=== PATIENT | female | born 1945 | race Caucasian/White ===

== ENCOUNTER 2024-11-11 15:02 | Outpatient (AMB) | payer MEDICARE, MEDICAID, SELFPAY ==
--- NOTE | 2024-11-11 15:12 | MHC.OFFVIS ---
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 Her son and daughter were here with her. Apparently he started having right hand shaking about a year ago or more. She was prescribed propranolol, which apparently was not helping. She was also having difficulty ambulating, dressing and undressing, and getting in and out of car. She was requiring help from family. There was no hallucinations or delusions or significant memory difficulties. There was no change in personality. [facility] Medical History (Updated 11/11/24 @ 15:18 by Fatou Hernandez MD) Vitamin D deficiency Osteopenia HLD (hyperlipidemia) Hypertension GERD (gastroesophageal reflux disease) Trigger finger Headache Benign essential tremor Surgical History (Updated 11/10/24 @ 09:14 by Adrianna Umanzor CMA) H/O: hysterectomy History of cholecystectomy Review of Systems Const Details: Constitutional:?No fever, chills, fatigue, weight loss, or night sweats. HEENT:?No headache, vision changes, hearing loss, nasal congestion, sore throat. Cardiovascular:?No chest pain, palpitations, orthopnea, PND, or leg swelling. Respiratory:?No cough, shortness of breath, wheezing, or hemoptysis. Gastrointestinal:?No nausea, vomiting, abdominal pain, diarrhea, or constipation. Genitourinary:?No dysuria, frequency, incontinence, or hematuria. Musculoskeletal:?No joint pain, stiffness, weakness, or muscle aches. Psychiatric:?No anxiety, depression, mood swings, sleep disturbance, or hallucinations. Endocrine:?No heat/cold intolerance, polydipsia, polyuria, or hair/skin changes. Hematologic/Lymphatic:?No easy bruising, bleeding, or lymphadenopathy. Integumentary (Skin):?No rash, lesions, itching, or color changes. Allergic/Immunologic:?No seasonal allergies, hives, or recurrent infections. Physical Exam Neuro Other: Mental Status: Alert and oriented to person, place, and time. Normal attention. Normal spontaneous speech, fluency, and comprehension. No obvious issues with mood and memory. Affect is appropriate. Cranial Nerves: CN II: Visual aguayo full to confrontation, visual acuity intact. CN III, IV, : Pupils equal, round, reactive to light and accommodation. Extraocular movements are normal. CN V: Facial sensation is normal. CN VII: Facial movements symmetrical. CN VIII: Hearing intact to bedside conversation is normal. CN IX, X: Palate elevates symmetrically. CN XI: Shoulder shrug and head turn symmetrical. CN XII: Tongue midline without atrophy or fasciculations. Motor: Bulk and tone normal in all extremities. No significant muscle weakness in arms and legs. No drift. Reflexes: Deep tendon reflexes 2+ and symmetric. Plantar response down-going bilaterally. Coordination: Etqwuy-cx-[id number] and ceqd-if-muap testing normal. No dysmetria. Gait and Station: No obvious gait abnormality. No ataxia or instability. Facial expression blinking or diminished. There was moderate generalized bradykinesia. Eijy-zl-buzckwsf right hand resting tremor. Moderate upper extremity cogwheeling rigidity. She is walking in his slow paced short-stepped gait with decreased arm swing with slightly stooped posture. Speech: Normal; no dysarthria or tremor. Assessment & Plan Assessment & Plan (1) Parkinson disease: Code(s): G20.A1 - Parkinson's disease without dyskinesia, without mention of fluctuations Category: Medical Qualifiers: Dyskinesia presence: without dyskinesia Fluctuating manifestations: with fluctuating manifestations Qualified Code(s): G20.A2 - Parkinson's disease without dyskinesia, with fluctuations Plan Impression recommendations: 79 years old woman with [id number] Parkinson's disease. She and her family was educated about this condition. At this time my recommendation was to try carbidopa levodopa 3 times a day and continue physical activity such as regular walking. I would see her back in few weeks time for further adjustment of medicines. Reference was provided for further education in this subject. Medications: New carbidopa-levodopa 25-100 mg (Sinemet) 1 tab PO TID 270 tabs 1RF Coding Level of Care Code New Pt Level 4 (56421) Diagnoses Parkinson's disease without dyskinesia, with fluctuating manifestations G20.A2 Dyskinesia presence: without dyskinesia Fluctuating manifestations: with fluctuating manifestations
--- OUTSIDE RECORDS SUMMARY | 2024-11-11 16:27 | XMS_ITS | Clinical Summary ---
Author Organization [address] Address [address] [place] [address] SYDNEY Bryant [phone] Phone Care Team Providers Care Line And Frame Poler Name Role Phone Sheryl Mitchell MD Primary Care Provider [phone] Allergies Active Allergy Reactions Criticality Noted Date Comments Other 05/31/2015 Seasonal Watery eye's , runny nose Oxycodone 02/09/2016 Vomiting, upset stomach, nausea Medications amLODIPine (NORVASC) 5 mg tablet Take 1 tablet (5 mg total) by mouth 1 (one) time each day. 3 Active meloxicam (Mobic) 15 mg tablet Take 0.5 tablets (7.5 mg total) by mouth. 4 Active klwbbcbq-ywk-rc on-FA-vit K-lut 4 mg iron-200 mcg-25 mcg tablet Take by mouth. Activ e lactobacillius acidophilus-spo rogenes per tablet Take 1 Capsule by mouth every morning (before breakfast). Probiotic Product (Probiotic & Acidophilus Ex St) Cap 4 Active pravastatin (PRAVACHOL) 40 mg tablet TAKE 1 TABLET BY MOUTH DAILY 90 tablet 1 5 Active LORazepam (ATIVAN) 1 mg tablet Take 1 tablet (1 mg total) by mouth every 6 (six) hours if needed for anxiety. Max Daily Amount: 4 mg 6 tablet 5 Active propranoloL (INDERAL) 10 mg tablet TAKE 1 TABLET(10 MG) BY MOUTH DAILY 90 tablet 1 5 Active cholecalciferol (VITAMIN D-3) 50 mcg (2,000 unit) tablet TAKE 1 TABLET BY MOUTH DAILY 90 tablet 1 5 Active lisinopril-hydr oCHLOROthiazide (PRINZIDE,ZESTO RETIC) 20-25 mg per tablet TAKE 1 TABLET BY MOUTH DAILY 90 tablet 5 Active fluticasone propionate (FLONASE) 50 mcg/actuation nasal spray Administer 1 spray into each nostril 2 (two) times a day. SHAKE LIQUID 16 mL 3 5 Active simethicone (MYLICON,GAS-X) 180 mg capsule Take 1 capsule (180 mg total) by mouth 1 (one) time each day if needed for flatulence. 20 each 5 Active Active Problems Problem Noted Date Diagnosed Date Synovial cyst of lumbar facet joint 12/23/2021 Overview (01/22/2024): Last Assessment & Plan: Patient is 13 days s/p right L5-S1 decompression with resection of synovial cyst. She is very happy with her postop results, states she no longer has the severe leg pain, she is walking better. She notes a slight ache in the right posterior thigh, but mild. She has been using Tylenol through the day as needed. She had nausea vomiting from the narcotics, stopped that a couple days after surgery. She been ambulating and staying active. She denies any wound drainage, sweats chills, fevers, bowel bladder issues. She is eating well. Ms. Rojas is doing well postop and can follow-up as needed, with time she should note continued improvements, but I asked her to call with any concerns or questions. All postop questions answered. Essential tremor 05/25/2021 Overview (01/22/2024): [facility] neurology Assessment & Plan (05/05/2024 3:54 PM EDT): Continue propranolol. Stable. Dilated cbd, acquired 09/12/2018 Assessment & Plan (05/05/2024 3:54 PM EDT): Asymptomatic. Followed up with gastroenterology. Will monitor LFTs. If worsens, will obtain an MRI of the abdomen. Orders: Hepatic function panel; Future Headache syndrome 04/21/2015 Trigger finger 04/21/2015 GERD (gastroesophageal reflux disease) 6 HTN (hypertension) 04/20/2015 Assessment & Plan (09/19/2024 2:53 PM EDT): Blood pressure is okay. She will follow sodium diet. Will monitor electrolytes. Continue current regimen of lisinopril-hydrochlorothiazide and propranolol. Orders: Basic metabolic panel; Future Assessment & Plan (05/05/2024 3:54 PM EDT): Stable. She will follow low-sodium diet. Continue current regimen of amlodipine, lisinopril-hydrochlorothiazide and propranolol. Hyperlipidemia 04/20/2015 Assessment & Plan (09/19/2024 2:53 PM EDT): Follow low-cholesterol diet. Continue pravastatin. Assessment & Plan (05/05/2024 3:54 PM EDT): Low-cholesterol diet discussed. Continue pravastatin. Osteopenia 04/20/2015 Tubular adenoma of colon 04/20/2015 Overview (01/22/2024): 10/2015: Moderate diverticulosis and grade 1 hemorrhoids, otherwise normal. Repeat in 5 years (Dr Bustillo) 2012 repeat 5 yrs Vitamin D deficiency 04/20/2015 Assessment & Plan (09/19/2024 2:53 PM EDT): Will monitor vitamin D levels. Orders: Vitamin D 25 hydroxy; Future Resolved Problems Problem Noted Date Diagnosed Date Resolved Date Renal cyst 04/21/2015 05/05/2024 Encounters Date Type Department Care Team Description 09/19/2024 2:15 PM EDT Office Visit Internal Medicine - [facility] [address] [place] [address] Stanislaw Mason MD Tremor (Primary Dx); Acquired hallux valgus of right foot; Hypertension, unspecified type; Hyperlipidemia, unspecified hyperlipidemia type; Vitamin D deficiency; Encounter for screening mammogram for malignant neoplasm of breast; Menopause from Last 3 Months Immunizations Immunization Administration Dates Next Due Influenza trivalent, 0.5mL (Fluad) 65yo and olde r 11/22/2021,01/10/2021 Pfizer SARS-CoV-2 COVID-19, mRNA, LNP-S, preservative free 01/17/2021 Pneumococcal polysaccharide 23 valent (Pneumovax 23) 2yo and older 03/23/2017 Td Tetanus diptheria (Tdvax) 7yo and older 01/24 Surgical History Surgery Date Site/Laterality Comments COLONOSCOPY 2012 PROCEDURE: HISTORICAL COLONOSCOPY; COMMENT: 5 yr repeat UPPER GASTROINTESTINAL ENDOSCOPY 2012 PROCEDURE: UPPER GI ENDOSCOPY/EXAM CHOLECYSTECTOMY PROCEDURE: HISTORICAL CHOLECYSTECTOMY HYSTERECTOMY PROCEDURE: HISTORICAL HYSTERECTOMY; COMMENT: BSO Medical History Medical History Date Comments HTN (hypertension) 04/20/2015 DX:HTN (hyper tension) Hyperlipidemia 04/20/2015 DX:Hyperlipidemi a GERD (gastroesophageal reflux disease) 04/20/2015 DX:GERD (gastroesophageal reflux disease) Tubular adenoma of colon 04/20/2015 DX:Tubu lar adenoma of colon Vitamin D deficiency 04/20/2015 DX:Vitamin D deficiency Osteopenia 04/20/2015 DX:Osteopenia Hepatic cyst 04/20/2015 DX:Hepatic cyst Headache syndrome 04/21/2015 DX:Headache sy ndrome 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 DX:Histor y of myocarditis Trigger finger 04/21/2015 DX:Trigger finge r Renal cyst 04/21/2015 DX:Renal cyst Essential tremor 05/25/2021 DX:Essential tr emor; COMMENT: [facility] neurology Family History Medical History Relation Name Comments Other: CKD Brother 1 Prostate cancer Brother 1 Asthma Brother 2 Thyroid disease Daughter Stroke Father Stroke Maternal Grandfather Heart failure Maternal Grandmother Asthma Mother Cataracts Mother Coronary artery disease Mother Emphysema Mother Hypertension Mother Other: Other Mother Hypertension Mother's side 1 entire famil y Asthma Mother's side 2 Cataracts Sister Hypertension Sister Mental illness Sister Thyroid disease Sister Blindness Neg Hx Glaucoma, macul ar degeneration, strabismus Relation Name Status Comments Brother 1 Brother 2 Daughter Father Maternal Grandfather Maternal Grandmother Mother Mother's side 1 Mother's side 2 Other Other females in fami ly have little to no pigmentation of skin/ also breast calcifications Sister Social History Tobacco Use Types Packs/Day Years Used Date Smoking Tobacco: Never Smokeless Tobacco: Never Tobacco Cessation:Counseling Given: Not Answered Alcohol Use Standard Drinks/Week Comments No 0 (1 standard drink = 0.6 oz pur e alcohol) Comments No Sex and Gender Information Value Date Recorded Sex Assigned at Not on file Legal Sex Female 6:16 AM EST Gender Identity Not on file Sexual Orientation Not on file Obstetrics History Last Filed Vital Signs Vital Sign Reading Time Taken Comments Blood Pressure 130/74 09/19/2024 2:26 PM EDT Pulse 85 09/19/2024 2:26 PM EDT Temperature - - Respiratory Rate - - Oxygen Saturation - - Inhaled Oxygen Concentration - - Weight 71.2 kg (156 lb 14.4 oz) 09/19/2024 2:26 PM EDT Height 157.5 cm (5' 2 ) 09/19/2024 2:26 PM EDT Body Mass Index 28.7 09/19/2024 2:26 PM EDT Plan of Treatment Upcoming Encounters Date Type Department Care Team (Late st Contact Info) Description 11/14/2024 1:00 PM EDT [facility]ointment [facility] [address] [phone] 11/14/2024 2:00 PM EDT Appointment [facility] Bone Density [address] [place] [address] 02/10/2025 3:00 PM EST [facility] [address] [place] [address] Sheryl Mitchell MD [address] [place] [phone] Health Maintenance Due Date Last Done Comments Zoster Vaccines (1 of 2) 1995 Pneumococcal Vaccine: 50+ Years (2 of 2 - PCV) 03/23/2018 03/23/2017 RSV Immunization Adult Patients (1 - 1-dose 75+ series) 2020 Social Influencers of Health Screening 01/21/2022 Depression Screening 02/13/2024 11/05/2023 COVID-19 Vaccine ( season) 2024 01/17/2021, 06/07/2020, 05/15/2020 Influenza Vaccine (#1) 2024 , 01/10/2021, 10/25/2019 Falls Risk Assessment 11/04/2024 11/05/2023 Medicare Annual Wellness Visit 11/04/2024 11/05/2023 Hypertension/CHF/CAD Annual BMP Blood Test 09/22/2025 09/22/2024, 04/16/2024, 07/20/2023, Additional history exists Colorectal Cancer Screening: Colonoscopy 01/14/2026 01/12/2021 DTaP,Tdap,and Td Vaccines (2 - Td or Tdap) 01/24/2026 01/25/2016 Cholesterol Screening (Lipid Panel) 11/07/2029 11/07/2024, 09/22/2024, 04/16/2024, Additional history exists Osteoporosis Screening (Bone Density Screening) 03/16/2032 03/16/2022, 04/24/2019, 10/02/2016 Hepatitis C Screening Completed 04/16/2018 HIB Vaccines Aged Out No longer eligi ble based on patient's age to complete this topic HPV Vaccines Aged Out No longer eligi ble based on patient's age to complete this topic Hepatitis A Vaccines Aged Out No long er eligible based on patient's age to complete this topic Hepatitis B Vaccines Aged Out No long er eligible based on patient's age to complete this topic IPV Vaccines Aged Out No longer eligi ble based on patient's age to complete this topic MMR Vaccines Aged Out No longer eligi ble based on patient's age to complete this topic Meningococcal ACWY Vaccine Aged Out N o longer eligible based on patient's age to complete this topic Meningococcal B Vaccine Aged Out No l onger eligible based on patient's age to complete this topic RSV Immunization Patients Under 20 months Aged Out No longer eligible based on patient's age to complete this topic Varicella Vaccines Aged Out No longer eligible based on patient's age to complete this topic Procedures Procedure Name Priority Date/Time Associated Diagnosis Comments LIPID PANEL WITH REFLEX TO DIRECT LDL Routine 11/07/2024 10:36 AM EDT Hyperlipidemia, unspecified hyperlipidemia type CREATINE KINASE Routine 10/10/2024 11:33 AM EDT Elevated CPK HEPATIC FUNCTION PANEL Routine 09/22/2024 12:52 PM EDT Dilated cbd, acquired CREATINE KINASE Routine 09/22/2024 12:52 PM EDT Muscle cramps MAGNESIUM Routine 09/22/2024 12:52 PM EDT Muscle cramps THYROID STIMULATING HORMONE WITH REFLEX TO FREE T4 AND FREE T3 Routine 09/22/2024 12:52 PM EDT Muscle cramps BASIC METABOLIC PANEL Routine 09/22/2024 12:52 PM EDT Hypertension, unspecified type VITAMIN D 25 HYDROXY Routine 09/22/2024 12:52 PM EDT Vitamin D deficiency LIPID PANEL WITH REFLEX TO DIRECT LDL Routine 09/22/2024 12:52 PM EDT Secondary hypertension Hyperlipidemia, unspecified hyperlipidemia type DEPRESSION SCREENING Routine 11/05/2023 FALLS RISK ASSESSMENT Routine 11/05/2023 DXA BONE DENSITY STUDY 1+ SITS AXIAL SKEL Routine 03/16/2022 1:35 PM EST Encounter for screening for osteoporosis HM COLONOSCOPY Routine 01/12/2021 HEPATITIS C SCREENING Routine 04/16/2018 from Last 3 Months or Most Recently Relevant to Health Maintenance Results * Lipid panel with reflex to direct LDL (11/07/2024 10:36 AM EDT) Only the most recent of2 resultswithin the time period is included. [facility] Cholesterol 197 0 - 200 mg/dL LAB CHEMISTRY METHOD 11/07/2024 5:59 PM EDT [facility] Triglycerides 84 0 - 150 mg/dL LAB CHEMISTRY METHOD 11/07/2024 5:59 PM EDT [facility] HDL 94 >=40 mg/dL LAB CHEMISTRY METHOD 11/07/2024 5:59 PM EDT [facility] LDL Calculated 86 0 - 100 mg/dL LAB CHEMISTRY METHOD 11/07/2024 5:59 PM EDT [facility] Comment:Estimated LDL Calcul ated using equation: Total cholesterol - HDL cholesterol - (Triglycerides/5) VLDL Cholesterol Farhan 16.8 mg/dL LAB CHEMISTRY METHOD 11/07/2024 5:59 PM EDT [facility] Non HDL Chol. (LDL+VLDL) 103 <145 mg/dL LAB CHEMISTRY METHOD 11/07/2024 5:59 PM EDT [facility] Chol/HDL Ratio 2.1 0.0 - 4.4 LAB CHEMISTRY METHOD 11/07/2024 5:59 PM EDT [facility] Blood Venous blood specimen / Unknown Venipuncture / Unknown 11/07/2024 10:36 AM EDT 11/07/2024 10:36 AM EDT Stanislaw Mason MD LAB BLOOD ORDERABLES Jennie l Result Performing Organization Address City/[facility]/ZIP Co de Phone Number [facility] [address] [place] [address], [place] [phone] * (ABNORMAL) Creatine kinase (10/10/2024 11:33 AM EDT) Only the most recent of2 resultswithin the time period is included. Total CK 483(H) 22 - 269 unit/L LAB CHEMISTRY METHOD 10/10/2024 4:06 PM EDT [facility] Blood Venous blood specimen / Unknown Venipuncture / Unknown 10/10/2024 11:33 AM EDT 10/10/2024 11:33 AM EDT Stanislaw Mason MD LAB BLOOD ORDERABLES Jennie l Result [facility] [address] [place] [address], [place] [phone] * Thyroid stimulating hormone with reflex to free t4 and free t3 (09/22/2024 12:52 PM EDT) TSH 2.68 0.40 - 4.00 mcIU/mL LAB CHEMISTRY METHOD 09/22/2024 8:22 PM EDT [facility] Blood Venous blood specimen / Unknown Venipuncture / Unknown 09/22/2024 12:52 PM EDT 09/22/2024 12:52 PM EDT Stanislaw Mason MD LAB BLOOD ORDERABLES Jennie l Result Performing Organization Address [facility]/ZIP Co de Phone Number [facility] [address] [place] [address], * Vitamin D 25 hydroxy (09/22/2024 12:52 PM EDT) Pathologist [facility] Vit D, 25-Hydroxy 53.8 30.0 - 80.0 ng/mL LAB CHEMISTRY METHOD 09/22/2024 8:21 PM EDT [facility] Blood Venous blood specimen / Unknown Venipuncture / Unknown 09/22/2024 12:52 PM EDT 09/22/2024 12:52 PM EDT Stanislaw Mason MD LAB BLOOD ORDERABLES Jennie l Result [facility] [address] [place] [address], [place] [phone] * Magnesium (09/22/2024 12:52 PM EDT) Pathologist [facility] Magnesium 2.2 1.9 - 2.6 mg/dL LAB CHEMISTRY METHOD 09/22/2024 7:40 PM EDT [facility] Blood Venous blood specimen / Unknown Venipuncture / Unknown 09/22/2024 12:52 PM EDT 09/22/2024 12:52 PM EDT us Stanislaw Mason MD LAB BLOOD ORDERABLES Jennie aftab Result [facility] [address] [place] [address], [place] [phone] * Hepatic function panel (09/22/2024 12:52 PM EDT) Pathologist [facility] Total Protein 7.2 6.0 - 8.0 g/dL LAB CHEMISTRY METHOD 09/22/2024 7:49 PM EDT [facility] Albumin 3.9 3.2 - 5.0 g/dL LAB CHEMISTRY METHOD 09/22/2024 7:49 PM EDT [facility] Total Bilirubin 1.1 0.0 - 1.4 mg/dL LAB CHEMISTRY METHOD 09/22/2024 7:49 PM EDT [facility] Bilirubin, Direct 0.2 0.0 - 0.3 mg/dL LAB CHEMISTRY METHOD 09/22/2024 7:49 PM EDT [facility] Bilirubin, Indirect 0.9 0.0 - 1.1 mg/dL LAB CHEMISTRY METHOD 09/22/2024 7:49 PM EDT [facility] ALT (SGPT) 34 10 - 60 unit/L LAB CHEMISTRY METHOD 09/22/2024 7:49 PM EDT [facility] AST (SGOT) 25 10 - 42 unit/L LAB CHEMISTRY METHOD 09/22/2024 7:49 PM EDT [facility] Alkaline Phosphatase 60 42 - 121 unit/L LAB CHEMISTRY METHOD 09/22/2024 7:49 PM EDT [facility] Blood Venous blood specimen / Unknown Venipuncture / Unknown 09/22/2024 12:52 PM EDT 09/22/2024 12:52 PM EDT us Stanislaw Mason MD LAB BLOOD ORDERABLES Jennie l Result [facility] [address] [place] [address], * Basic metabolic panel (09/22/2024 12:52 PM EDT) Sodium 140 133 - 145 mmol/L LAB CHEMISTRY METHOD 09/22/2024 7:40 PM EDT [facility] Potassium 4.1 3.5 - 5.5 mmol/L LAB CHEMISTRY METHOD 09/22/2024 7:40 PM [facility] Chloride 102 96 - 110 mmol/L LAB CHEMISTRY METHOD 09/22/2024 7:40 PM [facility] CO2 30 21 - 32 mmol/L LAB CHEMISTRY METHOD 09/22/2024 7:40 PM [facility] Anion Gap 8 3 - 11 LAB CHEMISTRY METHOD 09/22/2024 7:40 PM [facility] Glucose 91 70 - 100 mg/dL LAB CHEMISTRY METHOD 09/22/2024 7:40 PM [facility] BUN 15 5 - 25 mg/dL LAB CHEMISTRY METHOD 09/22/2024 7:40 PM [facility] Creatinine 0.85 0.50 - 1.10 mg/dL LAB CHEMISTRY METHOD 09/22/2024 7:40 PM [facility] eGFR 70 >=60 mL/min/1. 73m2 LAB CHEMISTRY METHOD 09/22/2024 7:40 PM [facility] Comment:Calculation based on the Chronic Kidney Disease Epidemiology Collaboration (CKD-EPI) equation refit without adjustment for race. BUN/Creatinine Ratio 17.6 LAB CHEMISTRY METHOD 09/22/2024 7:40 PM [facility] Calcium 9.6 8.5 - 10.5 mg/dL LAB CHEMISTRY METHOD 09/22/2024 7:40 PM EDT [facility] Blood Venous blood specimen / Unknown Venipuncture / Unknown 09/22/2024 12:52 PM EDT 09/22/2024 12:52 PM EDT Stanislaw Mason MD LAB BLOOD ORDERABLES Jennie l Result [facility] [address] [place] [address], [place] [phone] * Falls Risk Assessment (11/05/2023) Falls Risk Assessment abstracted Historical Provider HEALTH MAINTENANCE Final Result * Depression Screening (11/05/2023) Depression Screening abstracted Historical Provider HEALTH MAINTENANCE Final Result * DXA BONE DENSITY STUDY 1+ SITS AXIAL SKEL (03/16/2022 1:35 PM EST) Anatomical Region Laterality Modality Bone Densitometr y 11/22/2021 2:57 PM EDT Narrative 03/16/2022 6:52 PM EST BONE DENSITY SCAN (DEXA): FINDINGS: Lumbar Spine T-score is -0.8. (SD relative to 20-29 y/o adult) Z-score is 1.7. (SD relative to age matched peers) This is considered normal by WHO criteria. Left Hip T-score is -1.6. Z-score is 0.5. This is considered osteopenia by WHO criteria. Comparison exam(s): 04/24/2019 and 10/02/2016. 3.6% loss of lumbar spine bone mineral density and 3.4% loss of left hip bone mineral density compared with 2020, both statistically significant at the 95% confidence level. IMPRESSION: IMPRESSION: Osteopenia by WHO criteria. This patient has a 13% risk of major osteoporotic fracture and a 2.9% risk of hip fracture over the next 10 years. (World Health Organization Fracture Risk Assessment) [facility] Department of Internal Medicine recommends using National Osteoporosis Foundation (NOF) guidelines in treatment decisions related to osteoporosis. NOF guidelines suggest considering treatment for postmenopausal women and men aged 50 or older presenting with the following: History of hip or vertebral fracture. T-score = -2.5 (DXA) at the femoral neck, total hip, or spine, after appropriate evaluation to exclude secondary causes. Low bone mass (T-score between -1.0 and -2.5 at the femoral neck or spine) AND a 10-year probability of a hip fracture = 3% OR a 10-year probability of a major osteoporosis-related fracture = 20% based on the [place]-adapted WHO algorithm Please note that all treatment decisions require clinical judgment and consideration of individual patient factors, including patient preferences, co-morbidities, previous drug use, risk factors not captured in the FRAX model (e.g., frailty, falls, vitamin D deficiency, increased bone turnover, interval significant decline in bone density) and possible under- or over-estimation of fracture risk by FRAX. Optional alternative screening schedule based on epi Ward., [facility] March 02, 2011 for patients with osteopenia (based on hip BMD T-score) is as follows: * advanced osteopenia (T scores -2.00 to -2.49), BMD testing every year * moderate osteopenia (T scores -1.50 to -1.99), BMD testing every 5 years mild osteopenia or normal BMD (T scores -1.50 and higher), BMD testing every 15 years Procedure Note Olga Samayoa MD - 03/19/2023 BONE DENSITY SCAN (DEXA): FINDINGS: Lumbar Spine T-score is -0.8. (SD relative to 20-29 y/o adult) Z-score is 1.7. (SD relative to age matched peers) This is considered normal by WHO criteria. Left Hip T-score is -1.6. Z-score is 0.5. This is considered osteopenia by WHO criteria. Comparison exam(s): 04/24/2019 and 10/02/2016. 3.6% loss of lumbar spinebone mineral density and 3.4% loss of left hip bone mineral density compared with 2020, bothstatistically significant at the 95% confidence level. IMPRESSION: IMPRESSION: Osteopenia by WHO criteria. This patient has a 13% risk of majorosteoporotic fracture and a 2.9% risk of hip fracture over the next 10 years. (World HealthOrganization Fracture Risk Assessment) [facility] Department of Internal Medicine recommendsusing National Osteoporosis Foundation (NOF) guidelines in treatment decisions related toosteoporosis. NOF guidelines suggest considering treatment for postmenopausal women and menaged 50 or older presenting with the following: History of hip or vertebral fracture. T-score = -2.5 (DXA) at the femoral neck, total hip, or spine, afterappropriate evaluation to exclude secondary causes. Low bone mass (T-score between -1.0 and -2.5 at the femoral neck or spine)AND a 10-year probability of a hip fracture = 3% OR a 10-year probability of a majorosteoporosis-related fracture = 20% based on the [place]-adapted WHO algorithm Please note that all treatment decisions require clinical judgment andconsideration of individual patient factors, including patient preferences, co- morbidities,previous drug use, risk factors not captured in the FRAX model (e.g., frailty, falls, vitaminD deficiency, increased bone turnover, interval significant decline in bone density) andpossible under- or over-estimation of fracture risk by FRAX. Optional alternative screening schedule based on jorje Ward al., [facility] for patients with osteopenia (based on hip BMD T-score) is as follows: * advanced osteopenia (T scores -2.00 to -2.49), BMD testing every year * moderate osteopenia (T scores -1.50 to -1.99), BMD testing every 5years mild osteopenia or normal BMD (T scores -1.50 and higher), BMD testingevery 15 years Stanislaw Mason MD IM DXA PROCEDURES Final Result * Colonoscopy (01/12/2021) [facility] Colonoscopy no interpretation , abstracted Anatomical Region Laterality Modality Other Historical Provider HEALTH MAINTENANCE Final Result * Hepatitis C Screening (04/16/2018) [facility] Hepatitis C Screening abstracted Historical Provider HEALTH MAINTENANCE Final Result from Last 3 Months or Most Recently Relevant to Health Maintenance Insurance MEDICARE [place]ICAID - [place] Care Teams Line And Frame Poler Relationship Specialty Start Date End Date [facility]yl Mitchell [facility] [address] [facility] SYDNEY BRYANT PCP - General Internal Medicine 09/19/24
== END 2024-11-11 15:26 | disposition home or self-care (01) ==
LOC: HO.HSM 15:03
PROVIDERS: PCP Internal Medicine; Visit Provider Psychiatry & Neurology Neurology
DX: G20.A2 Parkinson's disease without dyskinesia, with fluctuations (principal)
CPT/HCPCS: 99204

== ENCOUNTER → 2024-11-11 15:02 | Outpatient (BNVA) | payer MEDICARE, MEDICAID, SELFPAY | PROVIDERS: PCP Internal Medicine; Visit Provider Psychiatry & Neurology Neurology | DX: G20.A2 Parkinson's disease without dyskinesia, with fluctuations (principal) | CPT/HCPCS: 99202 ==

== ENCOUNTER 2024-12-23 15:59 | Outpatient (AMB) | payer MEDICARE, MEDICAID, SELFPAY ==
--- NOTE | 2024-12-23 16:21 | A.OFFVIS_ITS ---
Intake Visit Reasons: 1m PD Allergies oxycodone Allergy (Unknown, Verified 11/10/24 09:15) Vomiting Seasonal Allergies Allergy (Unknown, Verified 11/10/24 09:15) Unknown HPI Comments Details: 79 years old woman with pswx-xy-lajlykwg Parkinson's disease. She is presenting with Parkinson's disease and associated symptoms. Her Parkinson's disease has progressively worsened over the past six years, with notable increases in anxiety during medical visits, especially when attending appointments with dental practitioners. She has experienced increased forgetfulness which has coincided with her use of levodopa, though the impact on memory is not typically attributed to the medication. The patient is on a regimen of levodopa and recent changes in dosage have been discussed, intending to manage her tremors better. Nausea remains a side effect, managed through dietary adjustments such as consuming solid meals prior to medication intake. Additionally, there is concern regarding dystonic symptoms manifesting as a hammer toe, which impacts her ambulation. Her current routine includes moderate daily physical activity, which she manages indoors to maintain mobility and engage in cognitive exercises. Despite arthritis seemingly affecting her hands, there is no significant dystonic presentation in her upper extremities. She engages in collaborative cooking with her family to maintain participation and cognitive stimulation. [facility] Medical History (Updated 11/11/24 @ 15:18 by Fatou Hernandez MD) Vitamin D deficiency Osteopenia HLD (hyperlipidemia) Hypertension GERD (gastroesophageal reflux disease) Trigger finger Headache Benign essential tremor Surgical History (Updated 11/10/24 @ 09:14 by Adrianna Umanzor CMA) H/O: hysterectomy History of cholecystectomy Review of Systems Narrative - Neurological: Reports forgetfulness, dystonia in the form of hammer toe. Denies hallucinations. - Psychiatric: Reports anxiety, especially during visits to doctors and dentists. Denies paranoia and delusions. - Musculoskeletal: Reports hammer toe. Denies joint pain in the hands except for arthritic changes. - Gastrointestinal: Reports nausea with medication, alleviated by eating. - General: Denies sleep disturbances except for sleepiness post-medication. Physical Exam Neuro Other: Mental Status: Alert and oriented to person, place, and time. Normal attention. Normal spontaneous speech, fluency, and comprehension. Cranial Nerves: CN II: Visual aguayo full to confrontation, visual acuity intact. CN III, IV, : Pupils equal, round, reactive to light and accommodation. Extraocular movements are normal. CN V: Facial sensation is normal. CN VII: Facial movements symmetrical. CN VIII: Hearing intact to bedside conversation is normal. CN IX, X: Palate elevates symmetrically. CN XI: Shoulder shrug and head turn symmetrical. CN XII: Tongue midline without atrophy or fasciculations. Motor: Bulk and tone normal in all extremities. No significant muscle weakness in arms and legs. No drift. She is able to get up with help from chair and walked in his small steps slow paced gait with turning on block. Extrapyramidal: Decreased facial expression blinking. Moderate bilateral cogwheeling rigidity. Mild bilateral hand resting tremor. Speech: Normal; no dysarthria or tremor. Assessment & Plan Assessment & Plan (1) Parkinson disease: Code(s): G20.A1 - Parkinson's disease without dyskinesia, without mention of fluctuations Category: Medical Plan Impression recommendations: 79 years old woman with moderate Parkinson's disease and mild cognitive difficulties. She also suffered from anxiety during last few years. Recommendations: 1. Try carbidopa/levodopa 25/100, 2 tablets, 3 times a day 2. MRI of brain without contrast 3. Regular walking or physical exercise 4. Reassurance and education. I talked to her family in length explaining her overall situation and symptom management. Orders: Orders MR head/brain wo con Today G20.A2 - Parkinson's disease without dyskinesia, with fluctuations Medications: Changed 2 From carbidopa-levodopa 25-100 mg (Sinemet) 1 tab PO TID 270 tabs 1RF To carbidopa-levodopa 25-100 mg (Sinemet) 2 tabs PO TID 540 tabs 0RF Coding Level of Care Code Est Pt Level 4 (87403) Diagnoses Parkinson disease G20.A1
--- OUTSIDE RECORDS SUMMARY | 2024-12-23 17:20 | XMS_ITS | Clinical Summary ---
Author Organization [address] Building Address [address] [place] [address] SYDNEY Bryant [phone] Phone Care Team Providers Care Administrative Services Assistant Name Role Phone Sheryl Mitchell MD Primary Care Provider Allergies Active Allergy Reactions Criticality Noted Date Comments Other 05/31/2015 Seasonal Watery eye's , runny nose Oxycodone 02/09/2016 Vomiting, upset stomach, nausea Medications amLODIPine (NORVASC) 5 mg tablet Take 1 tablet (5 mg total) by mouth 1 (one) time each day. 3 Active meloxicam (Mobic) 15 mg tablet Take 0.5 tablets (7.5 mg total) by mouth. 4 Active msmmbufx-ced-io on-FA-vit K-lut 4 mg iron-200 mcg-25 mcg [...] questions answered. Essential tremor 05/25/2021 Overview (01/22/2024): [facility] neurology Assessment & Plan (05/05/2024 3:54 PM [...] Encounters Date Type Department Care Team Description 11/27/2024 Results Follow-Up Internal Medicine - [facility] [address] [place] [address] Sheryl Mitchell MD 11/14/2024 12:58 PM EDT - 11/14/2024 11:59 PM EDT Hospital Encounter [facility] Bone Density [address] [place] [address] Menopause Discharge Disposition: Home or Self Care 11/14/2024 12:57 PM EDT - 11/14/2024 11:59 PM EDT Hospital Encounter [facility] [address] [place] [address] Encounter for screening mammogram for malignant neoplasm of breast Discharge Disposition: Home or Self Care from Last 3 Months Immunizations Immunization Administration [...] Essential tremor 05/25/2021 DX:Essential tr emor; COMMENT: [facility] neurology Family History Medical History Relation Name [...] Sexual Orientation Not on file Obstetrics History Para Term AB IAB SAB Ectopic Multiple Livin g Live Births 3 Last Filed Vital Signs Vital Sign Reading Time Taken Comments Blood Pressure 130/74 09/19/2024 2:26 PM EDT Pulse 85 09/19/2024 2:26 PM EDT Temperature - - Respiratory Rate - - Oxygen Saturation - - Inhaled Oxygen Concentration - - Weight 72.1 kg (159 lb) 11/14/2024 1:15 PM EDT Height 152.4 cm (5') 11/14/2024 1:15 PM EDT Body Mass Index 31.05 11/14/2024 1:15 PM EDT Plan of Treatment Upcoming Encounters Date Type Department Care Team (Late st Contact Info) Description 02/10/2025 3:00 PM EST [facility] [address] [place], [place] [phone] Sheryl Mitchell MD [address] [place], [place] Health Maintenance Due Date Last Done Comments [...] history exists Osteoporosis Screening (Bone Density Screening) 11/14/2034 11/14/2024, 03/16/2022, 04/24/2019, Additional history exists Hepatitis C Screening Completed 04/16/2018 HIB Vaccines [...] Procedure Name Priority Date/Time Associated Diagnosis Comments BD BONE DENSITY DXA AXIAL SKELETON Routine 11/14/2024 2:05 PM EDT Menopause MG MAMMO DIGITAL SCREENING W TREVER BILAT Routine 11/14/2024 1:21 PM EDT Encounter for screening mammogram for malignant neoplasm of breast LIPID PANEL WITH REFLEX TO DIRECT LDL [...] EDT Secondary hypertension Hyperlipidemia, unspecified hyperlipidemia type HM DEPRESSION SCREENING Routine 11/05/2023 HM FALLS RISK ASSESSMENT Routine 11/05/2023 HM COLONOSCOPY Routine 01/12/2021 HEPATITIS C SCREENING Routine 04/16/2018 from Last 3 Months or Most Recently Relevant to Health Maintenance Results * BD Bone Density DXA Axial Skeleton (11/14/2024 2:05 PM EDT) Anatomical Region Laterality Modality Wrist, Hip, L-spine Bone Densito metry 11/17/2024 12:1 2 PM EDT Impressions 11/17/2024 12:13 PM EDT 1. Osteopenia. There has been a decrease of 3.4% in bone mineral density in the lumbar spine since the prior examination of 07/24/2013. There has been a decrease of 5.1% in bone mineral density in the right femur and a decrease of 4.3% in bone mineral density in the left femur. 2. FRAX analysis yields a 10-year probability of major osteoporotic fracture of 14.8% and a 10-year probability of hip fracture of 4.1%. Code 28513 -------- FINAL REPORT -------- Dictated By: Mk Alvares Dictated Date: 11/17/2024 12:12 ET Assigned Physician: Mk Alvares Reviewed and Electronically Signed By: Mk Alvares Signed Date: 11/17/2024 12:13 ET Workstation ID: [id number] Transcribed By: Self Edit Transcribed Date: 11/17/2024 12:12 ET Narrative 11/17/2024 12:13 PM EDT HISTORY: The patient is a 79-year-old postmenopausal female with clinical concern for metabolic bone disease. FINDINGS: Dual energy x-ray absorptiometry of the lumbar spine and femurs is performed. The mean bone mineral density at L1-2 is 1.016 gm/cm2 which is 87% of that of young normals and 104% of that of age matched controls. This yields a T-score of -1.2 and a Z-score of 0.3 which is diagnostic of osteopenia. The mean bone mineral density of the femurs bilaterally is 0.835 gm/cm2 which is 83% of that of young normals and 107% of that of age matched controls. This yields a T-score of -1.4 and a Z-score of 0.4 which is diagnostic of osteopenia. The T-score of the right femoral neck is -2.2 and that of the left femoral neck is -2.0 which is diagnostic of osteopenia. Procedure Note Mk Alvares MD - 11/17/2024 HISTORY: The patient is a 79-year-old postmenopausal female with clinicalconcern for metabolic bone disease. FINDINGS: Dual energy x-ray absorptiometry of the lumbar spine and femursis performed. The mean bone mineral density at L1-2 is 1.016 gm/cm2 whichis 87% of that of young normals and 104% of that of age matched controls.This yields a T-score of -1.2 and a Z-score of 0.3 which is diagnostic ofosteopenia. The mean bone mineral density of the femurs bilaterally is 0.835 gm/nb1ntnib is 83% of that of young normals and 107% of that of age matchedcontrols. This yields a T-score of -1.4 and a Z-score of 0.4 which isdiagnostic of osteopenia. The T- score of the right femoral neck is -2.2and that of the left femoral neck is -2.0 which is diagnostic ofosteopenia. IMPRESSION: 1. Osteopenia. There has been a decrease of 3.4% in bone mineral densityin the lumbar spine since the prior examination of 07/24/2013. There hasbeen a decrease of 5.1% in bone mineral density in the right femur and adecrease of 4.3% in bone mineral density in the left femur. 2. FRAX analysis yields a 10-year probability of major osteoporoticfracture of 14.8% and a 10-year probability of hip fracture of 4.1%. Code 90465 -------- FINAL REPORT -------- Dictated By: Mk Alvares Dictated Date: 11/17/2024 12:12 ET Assigned Physician: Mk Alvares Reviewed and Electronically Signed By: Mk Alvares Signed Date: 11/17/2024 12:13 ET Workstation ID: [id number] Transcribed By: Self Edit Transcribed Date: 11/17/2024 12:12 ET Stanislaw Mason MD IM DXA PROCEDURES Final Result * MG Mammo Digital Screening w Trever bilat (11/14/2024 1:21 PM EDT) Anatomical Region Laterality Modality Breast Bilateral Mammography 11/17/2024 7:38 AM EDT Impressions 11/17/2024 7:42 AM EDT No mammographic evidence of malignancy. A negative mammogram in the presence of a clinically suspicious palpable abnormality does not preclude the possibility of malignancy or alter the indications for biopsy. PQRI CPT II 3342F Code 89786, 99703 PQRI 225 CPT II 7025F TISSUE DENSITY: There are scattered areas of fibroglandular density. (BI-RADS category B) IMPRESSION: Benign. BI-RADS CATEGORY: 2 - BENIGN RECOMMENDATION: Screening bilateral mammogram is recommended in 1 year. Mammo Location: [facility], [address] [place] [address] -------- FINAL REPORT -------- Dictated By: Mk Alvares Dictated Date: 11/17/2024 07:38 ET Assigned Physician: Mk Alvares Reviewed and Electronically Signed By: Mk Alvares Signed Date: 11/17/2024 07:42 ET Workstation ID: [id number] Transcribed By: Self Edit Transcribed Date: 11/17/2024 07:38 ET Narrative 11/17/2024 7:42 AM EDT CLINICAL: The patient is a 79 years Female presenting for routine screening mammography. COMPARISON: Most recently 09/01/2023 and most remotely 03/06/2016. TECHNIQUE: Full-field digital mammography of the breasts bilaterally consisting of tomosynthesis in MLO and CC projection is performed in the Respicardia 2000-D unit. Computer aided detection utilizing the iCAD system was utilized. FINDINGS: The breasts are again seen to be composed of a combination of fatty and fibroglandular elements. Scattered benign punctate and rim calcifications are again noted in the left breast. There is no suspicious cluster of microcalcifications, mass, or area of architectural distortion. There is no skin thickening or nipple retraction. Procedure Note Mk Alvares MD - 11/17/2024 CLINICAL: The patient is a 79 years Female presenting for routinescreening mammography. COMPARISON: Most recently 09/01/2023 and most remotely 03/06/2016. TECHNIQUE: Full-field digital mammography of the breasts bilaterallyconsisting of tomosynthesis in MLO and CC projection is performed in theRespicardia 2000-D unit. Computer aided detection utilizing the iCADsystem was utilized. FINDINGS: The breasts are again seen to be composed of a combination offatty and fibroglandular elements. Scattered benign punctate and rimcalcifications are again noted in the left breast. There is no suspiciouscluster of microcalcifications, mass, or area of architectural distortion.There is no skin thickening or nipple retraction. IMPRESSION: No mammographic evidence of malignancy. A negative mammogram in the presence of a clinically suspicious palpableabnormality does not preclude the possibility of malignancy or alter theindications for biopsy. PQRI CPT II 3342F Code 15531, 82045 PQRI 225 CPT II 7025F TISSUE DENSITY: There are scattered areas of fibroglandular density.(BI-RADS category B) IMPRESSION: Benign. BI-RADS CATEGORY: 2 - BENIGN RECOMMENDATION: Screening bilateral mammogram is recommended in 1 year. Mammo Location: [facility] [place] [facility], [address] [place] [id number] -------- FINAL REPORT -------- Dictated By: Mk Alvares Dictated Date: 11/17/2024 07:38 ET Assigned Physician: Mk Alvares Reviewed and Electronically Signed By: Mk Alvares Signed Date: 11/17/2024 07:42 ET Workstation ID: [id number] Transcribed By: Self Edit Transcribed Date: 11/17/2024 07:38 ET us Stanislaw Mason MD IMG BI PROCEDURES Final R esult * Lipid panel with reflex to direct LDL (11/07/2024 10:36 AM EDT) Only the most recent of2 resultswithin the time period is included. Cholesterol 197 0 - 200 mg/dL LAB CHEMISTRY METHOD 11/07/2024 5:[address] [facility] Triglycerides 84 0 - 150 mg/dL LAB CHEMISTRY METHOD 11/07/2024 5:[address] [facility] HDL 94 >=40 mg/dL LAB CHEMISTRY METHOD 11/07/2024 5:[address] [facility] LDL Calculated 86 0 - 100 mg/dL LAB CHEMISTRY METHOD 11/07/2024 5:[address] [facility] Comment:Estimated LDL Calcul ated using equation: Total cholesterol - HDL cholesterol - (Triglycerides/5) VLDL Cholesterol Farhan 16.8 mg/dL LAB CHEMISTRY METHOD 11/07/2024 5:[address] [facility] Non HDL Chol. (LDL+VLDL) 103 <145 mg/dL LAB CHEMISTRY METHOD 11/07/2024 5:[address] [facility] Chol/HDL Ratio 2.1 0.0 - 4.4 LAB CHEMISTRY METHOD 11/07/2024 5:[address] [facility] Blood Venous blood specimen / Unknown Venipuncture / Unknown 11/07/2024 10:36 AM EDT 11/07/2024 10:36 AM EDT us Stanislaw Mason MD LAB BLOOD ORDERABLES Jennie l Result Performing Organization Address City/[facility]/ZIP Co de Phone Number [facility] [address] [place] [address], [place] [phone] * (ABNORMAL) Creatine kinase (10/10/2024 11:33 AM EDT) Only the most recent of2 resultswithin the time period is included. Total CK 483(H) 22 - 269 unit/L LAB CHEMISTRY METHOD 10/10/2024 4:[address] [facility] Blood Venous blood specimen / Unknown Venipuncture / Unknown 10/10/2024 11:33 AM EDT 10/10/2024 11:33 AM EDT us Stanislaw Mason MD LAB BLOOD ORDERABLES Jennie l Result Performing Organization Address City/[facility]/ZIP Co de Phone Number [facility] [address] [place] [address], [place] [phone] * Thyroid stimulating hormone with reflex to free t4 and free t3 (09/22/2024 12:52 PM EDT) TSH 2.68 0.40 - 4.00 mcIU/mL LAB CHEMISTRY METHOD 09/22/2024 8:[address] [facility] Blood Venous blood specimen / Unknown Venipuncture / Unknown 09/22/2024 12:52 PM EDT 09/22/2024 12:52 PM EDT us Stanislaw Mason MD LAB BLOOD ORDERABLES Jennie l Result Performing Organization Address [facility]/ZIP Co de Phone Number [facility] [address] [place] [address], [place] [phone] * Vitamin D 25 hydroxy (09/22/2024 12:52 PM EDT) Vit D, 25-Hydroxy 53.8 30.0 - 80.0 ng/mL LAB CHEMISTRY METHOD 09/22/2024 8:[address] [facility] Blood Venous blood specimen / Unknown Venipuncture / Unknown 09/22/2024 12:52 PM EDT 09/22/2024 12:52 PM EDT us Stanislaw Mason MD LAB BLOOD ORDERABLES Jennie l Result Performing Organization Address City/[facility]/ZIP Co de Phone Number [facility] [address] [place] [address], [place] [phone] * Magnesium (09/22/2024 12:52 PM EDT) Magnesium 2.2 1.9 - 2.6 mg/dL LAB CHEMISTRY METHOD 09/22/2024 7:[address] [facility] Blood Venous blood specimen / Unknown Venipuncture / Unknown 09/22/2024 12:52 PM EDT 09/22/2024 12:52 PM EDT us Stanislaw Mason MD LAB BLOOD ORDERABLES Jennie l Result Performing Organization Address City/[facility]/ZIP Co de Phone Number [facility] [address] [place] [address], * Hepatic function panel (09/22/2024 12:52 PM EDT) Total Protein 7.2 6.0 - 8.0 g/dL LAB CHEMISTRY METHOD 09/22/2024 7:[address] [facility] Albumin 3.9 3.2 - 5.0 g/dL LAB CHEMISTRY METHOD 09/22/2024 7:[address] [facility] Total Bilirubin 1.1 0.0 - 1.4 mg/dL LAB CHEMISTRY METHOD 09/22/2024 7:[address] [facility] Bilirubin, Direct 0.2 0.0 - 0.3 mg/dL LAB CHEMISTRY METHOD 09/22/2024 7:[address] [facility] Bilirubin, Indirect 0.9 0.0 - 1.1 mg/dL LAB CHEMISTRY METHOD 09/22/2024 7:[address] [facility] ALT (SGPT) 34 10 - 60 unit/L LAB CHEMISTRY METHOD 09/22[facility]2024 7:[facility] AST (SGOT) 25 10 - 42 unit/L LAB CHEMISTRY METHOD 09/22/2024 7:[address] [facility] Alkaline Phosphatase 60 42 - 121 unit/L LAB CHEMISTRY METHOD 09/22/2024 7:[address] [facility] Blood Venous blood specimen / Unknown Venipuncture / Unknown 09/22/2024 12:52 PM EDT 09/22/2024 12:52 PM EDT Stanislaw Mason MD LAB BLOOD ORDERABLES Jennie l Result [facility] [address] [place] [address], [place] [phone] * Basic metabolic panel (09/22/2024 12:52 PM EDT) Sodium 140 133 - 145 mmol/L LAB CHEMISTRY METHOD 09/22/2024 7:40 PM [facility] Potassium 4.1 3.5 - 5.5 mmol/L LAB CHEMISTRY METHOD 09/22/2024 7:40 PM [facility] Chloride 102 96 - 110 mmol/L LAB CHEMISTRY METHOD 09/22/2024 7:40 PM [facility] CO2 30 21 - 32 mmol/L LAB CHEMISTRY METHOD 09/22/2024 7:40 PM [facility] Anion Gap 8 3 - 11 LAB CHEMISTRY METHOD 09/22/2024 7:40 PM [facility] Glucose 91 70 - 100 mg/dL LAB CHEMISTRY METHOD 09/22/2024 7:40 PM [facility] BUN 15 5 - 25 mg/dL LAB CHEMISTRY METHOD 09/22/2024 7:40 PM [facility] Creatinine 0.85 0.50 - 1.10 mg/dL LAB CHEMISTRY METHOD 09/22/2024 7:40 PM [facility] eGFR 70 >=60 mL/min/1. 73m2 LAB CHEMISTRY METHOD 09/22/2024 7:40 PM [facility] Comment:Calculation based on the Chronic Kidney Disease Epidemiology Collaboration (CKD-EPI) equation refit without adjustment for race. BUN/Creatinine Ratio 17.6 LAB CHEMISTRY METHOD 09/22/2024 7:40 PM [facility] Calcium 9.6 8.5 - 10.5 mg/dL LAB CHEMISTRY METHOD 09/22/2024 7:40 PM [facility] Blood Venous blood specimen / Unknown Venipuncture / Unknown 09/22/2024 12:52 PM EDT 09/22/2024 12:52 PM EDT Stanislaw Mason MD LAB BLOOD ORDERABLES Jennie l Result [facility] ([facility]) [facility] [address] [place] [address], [place] [phone] * Falls Risk Assessment (11/05/2023) Pathologist [facility] Falls Risk Assessment abstracted Historical Provider HEALTH MAINTENANCE Final Result * Depression Screening (11/05/2023) Pathologist [facility] Depression Screening abstracted Historical Provider HEALTH MAINTENANCE Final Result * Colonoscopy (01/12/2021) Pathologist [facility] Colonoscopy no interpretation , abstracted Anatomical Region Laterality Modality Other [facility] Provider HEALTH MAINTENANCE Final Result * Hepatitis C Screening (04/16/2018) Pathologist [facility] Hepatitis C Screening abstracted Historical Provider HEALTH MAINTENANCE Final Result from Last 3 Months or Most Recently Relevant to Health Maintenance Insurance MEDICARE [place]ICA[place] - [place] Care Teams Administrative Services Assistant Relationship Specialty Start Date End Date Sheryl Mitchell MD [address] [place] [address] PCP - General Internal Medicine 09/19/24
--- OUTSIDE RECORDS SUMMARY | 2024-12-23 17:20 | XMS_ITS | Encounter Summary ---
Author Organization [facility] Address [address] [place] [address] Care Team Providers Care Lucerne Farmer Name Role Phone Sheryl Mitchell MD Primary Care Provider [phone] Encounter Details Date Type Department Care Team (Late st Contact Info) Description 11/27/2024 Results Follow-Up Internal Medicine - [facility] [address] [facility] [place] [phone] Sheryl Mitchell MD [address] [facility] [address] [place] Social History Tobacco Use Types Packs/Day Years Used Date Smoking Tobacco: Never Smokeless Tobacco: Never Alcohol Use Standard Drinks/Week Comments No 0 (1 standard drink = 0.6 oz pur e alcohol) Comments No Sex and Gender Information Value Date Recorded Sex Assigned at Not on file Legal Sex Female 6:16 AM EST Gender Identity Not on file Sexual Orientation Not on file documented as of this encounter Plan of Treatment Upcoming Encounters Date Type Department Care Team (Late st Contact Info) Description 02/10/2025 3:00 PM EST [facility] [address] [place] [phone] Sheryl Mitchell MD [address] [facility] [place] documented as of this encounter Visit Diagnoses Not on filedocumented in this encounter Care Teams Lucerne Farmer Relationship Specialty Start Date End Date Sheryl Mitchell MD [address] [facility] [place] [phone] PCP - General Internal Medicine 09/19/24 documented as of this encounter
== END 2024-12-23 16:34 | disposition home or self-care (01) ==
LOC: HO.HSM 16:00
PROVIDERS: PCP Internal Medicine; Visit Provider Psychiatry & Neurology Neurology
DX: G20.A1 Parkinson's disease without dyskinesia, without mention of fluctuations (principal)
CPT/HCPCS: 99214

== ENCOUNTER → 2024-12-23 15:59 | Outpatient (BNVA) | payer MEDICARE, MEDICAID, SELFPAY | PROVIDERS: PCP Internal Medicine; Visit Provider Psychiatry & Neurology Neurology | DX: G20.A1 Parkinson's disease without dyskinesia, without mention of fluctuations (principal) | CPT/HCPCS: 99212 ==

== ENCOUNTER 2025-01-31 10:41 | Outpatient (REF) | payer MEDICARE, MEDICAID, SELFPAY ==
--- OUTSIDE RECORDS SUMMARY | 2025-01-31 10:48 | XMS_ITS | Clinical Summary ---
Author Organization [address] Building Address [address] [place] [address] SYDNEY Bryant [phone] Phone Care Team Providers Care Oil Distributor Name Role Phone Sheryl Mitchell MD Primary Care Provider [phone] Allergies Active Allergy Reactions Criticality Noted Date Comments Other 05/31/2015 Seasonal Watery eye's , runny nose Oxycodone 02/09/2016 Vomiting, upset stomach, nausea Medications amLODIPine (NORVASC) 5 mg tablet Take 1 tablet (5 mg total) by mouth 1 (one) time each day. 10/03/19 23 Active meloxicam (Mobic) 15 mg tablet Take 0.5 tablets (7.5 mg total) by mouth. 04/03/19 24 Active taryujcg-ekm-f mirna-FA-vit K-lut 4 mg iron-200 mcg-25 mcg tablet Take by mouth. Activ e lactobacillius acidophilus-sp orogenes per tablet Take 1 Capsule by mouth every morning (before breakfast). Probiotic Product (Probiotic & Acidophilus Ex St) Cap 05/03/19 24 Active LORazepam (ATIVAN) 1 mg tablet Take 1 tablet (1 mg total) by mouth every 6 (six) hours if needed for anxiety. Max Daily Amount: 4 mg 6 tablet 06/11/19 25 Active propranoloL (INDERAL) 10 mg tablet TAKE 1 TABLET(10 MG) BY MOUTH DAILY 90 tablet 1 06/24/19 25 Active cholecalcifero l (VITAMIN D-3) 50 mcg (2,000 unit) tablet TAKE 1 TABLET BY MOUTH DAILY 90 tablet 1 06/24/19 25 Active lisinopril-hyd roCHLOROthiazi de (PRINZIDE,ZEST ORETIC) 20-25 mg per tablet TAKE 1 TABLET BY MOUTH DAILY 90 tablet 08/08/19 25 Active fluticasone propionate (FLONASE) 50 mcg/actuation nasal spray Administer 1 spray into each nostril 2 (two) times a day. SHAKE LIQUID 16 mL 3 09/20/19 25 Active simethicone (MYLICON,GAS-X ) 180 mg capsule Take 1 capsule (180 mg total) by mouth 1 (one) time each day if needed for flatulence. 20 each 09/20/19 25 Active pravastatin (PRAVACHOL) 40 mg tablet TAKE 1 TABLET BY MOUTH DAILY 90 tablet 01/16/20 25 Active pravastatin (PRAVACHOL) 40 mg tablet TAKE 1 TABLET BY MOUTH DAILY 90 tablet 1 05/24/19 25 025 Discontinued Active Problems Problem Noted Date Diagnosed Date [...] questions answered. Essential tremor 05/25/2021 Overview (01/22/2024): [facility] neurology Assessment & Plan (05/05/2024 3:54 PM [...] Follow-Up Internal Medicine - [facility] [address] [facility] [place] [phone] Sheryl Mitchell MD 11/14/2024 12:58 PM EDT - 11/14/2024 11:59 PM EDT Hospital Encounter [facility] [address] [place] [address] Menopause Discharge Disposition: Home or Self Care 11/14/2024 12:57 PM EDT - 11/14/2024 11:59 PM EDT [facility] [address] [address] Encounter for screening mammogram for malignant [...] Essential tremor 05/25/2021 DX:Essential tr emor; COMMENT: [facility] neurology Family History Medical History Relation Name [...] PM EST Office Visit Internal Medicine - [facility] [address] [facility] [place] [phone] Sheryl Mitchell MD [address] [facility] [place] Health Maintenance Due Date Last Done Comments Drug Screen 1945 Non-Opioid Controlled Substance Agreement 1945 Zoster Vaccines (1 of 2) 1995 Pneumococcal Vaccine: 50+ Years (2 of 2 - PCV) 03/23/2018 03/23/2017 RSV Immunization Adult Patients (1 - 1-dose 75+ series) 2020 Social Influencers of Health Screening 01/21/2022 Depression Screening 02/13/2024 11/05/2023 COVID-19 Vaccine (4 - season) 2024 01/17/2021, 06/07/2020, 05/15/2020 Influenza Vaccine [...] 10:36 AM EDT Hyperlipidemia, unspecified hyperlipidemia type BASIC METABOLIC PANEL Routine 09/22/2024 12:52 PM EDT Hypertension, unspecified type HM DEPRESSION SCREENING Routine 11/05/2023 FALLS RISK ASSESSMENT Routine 11/05/2023 COLONOSCOPY Routine 01/12/2021 HEPATITIS C SCREENING Routine [...] probability of hip fracture of 4.1%. Code 89702 -------- FINAL REPORT -------- Dictated By: Mk Alvares Dictated Date: 11/17/2024 12:12 ET Assigned Physician: Mk Alvares Reviewed and Electronically Signed By: Mk Alvares Signed Date: 11/17/2024 12:13 ET Workstation ID: [id number] Transcribed By: Self Edit Transcribed Date: 11/17/2024 [...] density of the femurs bilaterally is 0.835 gm/eb9ldhfi is 83% of that of young normals [...] probability of hip fracture of 4.1%. Code 16191 -------- FINAL REPORT -------- Dictated By: Mk Alvares Dictated Date: 11/17/2024 12:12 ET Assigned Physician: Mk Alvares Reviewed and Electronically Signed By: Mk Alvares Signed Date: 11/17/2024 12:13 ET Workstation ID: [id number] Transcribed By: Self Edit Transcribed Date: 11/17/2024 [...] for biopsy. PQRI CPT II 3342F Code 57747, 10178 PQRI 225 CPT II 7025F TISSUE DENSITY: There are scattered areas of fibroglandular density. (BI-RADS category B) IMPRESSION: Benign. BI-RADS CATEGORY: 2 - BENIGN RECOMMENDATION: Screening bilateral mammogram is recommended in 1 year. Mammo Location: [facility], [address] [place] [address] -------- FINAL REPORT -------- Dictated By: Mk Alvares Dictated Date: 11/17/2024 07:38 ET Assigned Physician: Mk Alvares Reviewed and Electronically Signed By: Mk Alvares Signed Date: 11/17/2024 07:42 ET Workstation ID: [id number] Transcribed By: Self Edit Transcribed Date: 11/17/2024 07:38 ET Narrative 11/17/2024 7:42 AM EDT CLINICAL: The patient is a 79 years Female presenting for routine screening mammography. COMPARISON: Most recently 09/01/2023 and most remotely 03/06/2016. TECHNIQUE: Full-field digital mammography of the breasts bilaterally consisting of tomosynthesis in MLO and CC projection is performed in the Ksplicee 2000-D unit. Computer aided detection utilizing the [...] MLO and CC projection is performed in theecobeeographDE Spirits 2000-D unit. Computer aided detection utilizing the [...] for biopsy. PQRI CPT II 3342F Code 68344, 06132 PQRI 225 CPT II 7025F TISSUE DENSITY: There are scattered areas of fibroglandular density.(BI-RADS category B) IMPRESSION: Benign. BI-RADS CATEGORY: 2 - BENIGN RECOMMENDATION: Screening bilateral mammogram is recommended in 1 year. Mammo Location: [facility], [address] [facility] [address] -------- FINAL REPORT -------- Dictated By: Mk Alvares Dictated Date: 11/17/2024 07:38 ET Assigned Physician: Mk Alvares Reviewed and Electronically Signed By: Mk Alvares Signed Date: 11/17/2024 07:42 ET Workstation ID: [id number] Transcribed By: Self Edit Transcribed Date: 11/17/2024 07:38 ET us Stanislaw Mason MD IMG BI PROCEDURES Final R esult * Lipid panel with reflex to direct LDL (11/07/2024 10:36 AM EDT) Cholesterol 197 0 - 200 mg/dL LAB CHEMISTRY METHOD 11/07/2024 5:59 PM EDT [facility] Triglycerides 84 0 - 150 mg/dL LAB CHEMISTRY METHOD 11/07/2024 5:59 PM EDT [facility] HDL 94 >=40 mg/dL LAB CHEMISTRY METHOD 11/07/2024 5:59 PM EDT [facility] LDL Calculated 86 0 - 100 mg/dL LAB CHEMISTRY METHOD 11/07/2024 5:59 PM EDT [facility] Comment:Estimated LDL Calcul ated using equation: Total cholesterol - HDL cholesterol - (Triglycerides/5) VLDL Cholesterol Farhan 16.8 mg/dL LAB CHEMISTRY METHOD 11/07/2024 5:59 PM EDT [facility] Non HDL Chol. (LDL+VLDL) 103 <145 mg/dL LAB CHEMISTRY METHOD 11/07/2024 5:59 PM EDT [facility] Chol/HDL Ratio 2.1 0.0 - 4.4 LAB CHEMISTRY METHOD 11/07/2024 5:59 PM EDT [facility] Blood Venous blood specimen / Unknown Venipuncture / Unknown 11/07/2024 10:36 AM EDT 11/07/2024 10:36 AM EDT us Stanislaw Mason MD LAB BLOOD ORDERABLES Jennie aftab Result [facility] [address] [place] [address], * Basic metabolic panel (09/22/2024 12:52 PM EDT) Sodium 140 133 - 145 mmol/L LAB CHEMISTRY METHOD 09/22/2024 7:40 PM EDT [facility] Potassium 4.1 3.5 - 5.5 mmol/L LAB CHEMISTRY METHOD 09/22/2024 7:40 PM [facility] Chloride 102 96 - 110 mmol/L LAB CHEMISTRY METHOD 09/22/2024 7:40 PM [facility] CO2 30 21 - 32 mmol/L LAB CHEMISTRY METHOD 09/22/2024 7:40 PM [facility] Anion Gap 8 3 - 11 LAB CHEMISTRY METHOD 09/22/2024 7:40 PM [facility] Glucose 91 70 - 100 mg/dL LAB CHEMISTRY METHOD 09/22/2024 7:40 PM [facility] BUN 15 5 - 25 mg/dL LAB CHEMISTRY METHOD 09/22/2024 7:40 PM [facility] Creatinine 0.85 0.50 - 1.10 mg/dL LAB CHEMISTRY METHOD 09/22/2024 7:40 PM [facility] eGFR 70 >=60 mL/min/1. 73m2 LAB CHEMISTRY METHOD 09/22/2024 7:40 PM [facility] Comment:Calculation based on the Chronic Kidney Disease Epidemiology Collaboration (CKD-EPI) equation refit without adjustment for race. BUN/Creatinine Ratio 17.6 LAB CHEMISTRY METHOD 09/22/2024 7:40 PM [facility] Calcium 9.6 8.5 - 10.5 mg/dL LAB CHEMISTRY METHOD 09/22/2024 7:40 PM EDT [facility] Blood Venous blood specimen / Unknown Venipuncture / Unknown 09/22/2024 12:52 PM EDT 09/22/2024 12:52 PM EDT Stanislaw Mason MD LAB BLOOD ORDERABLES Jennie l Result [facility] [address] [place] [address], [place] [phone] * Falls Risk Assessment (11/05/2023) [facility] Falls Risk Assessment abstracted Historical Provider HEALTH MAINTENANCE Final Result * Depression Screening (11/05/2023) Pathologist [facility] Depression Screening abstracted [facility] Provider HEALTH MAINTENANCE Final Result * Colonoscopy (01/12/2021) [facility] Colonoscopy no interpretation , abstracted Anatomical Region Laterality Modality Other Historical Provider HEALTH MAINTENANCE Final Result * Hepatitis C Screening (04/16/2018) [facility] Hepatitis C Screening abstracted [facility] Provider HEALTH MAINTENANCE Final Result from Last 3 Months or Most Recently Relevant to Health Maintenance Insurance MEDICARE [place]ICAID - [place] Care Teams Oil Distributor Relationship Specialty Start Date End Date Sheryl Mitchell MD [address] [facility] [place] PCP - General Internal Medicine 09/19/24
--- OUTSIDE RECORDS SUMMARY | 2025-01-31 10:48 | XMS_ITS | Encounter Summary ---
Author Organization [facility] Address [address] [place] [address] Care Team Providers Care Bone Puller Name Role Phone Sheryl Mitchell MD Primary Care Provider [phone] Encounter Details Date Type Department Care Team (Late st Contact Info) Description 11/27/2024 Results Follow-Up Internal Medicine - [facility] [address] [facility] [place] [phone] Sheryl Mitchell MD [address] [facility] [place] Social History Tobacco Use [...] PM EST [facility] [place] [phone] Sheryl Mitchell MD [address] [facility] [place] documented as of this encounter Visit Diagnoses Not on filedocumented in this encounter Care Teams Bone Puller Relationship Specialty Start Date End Date Sheryl Mitchell MD [address] [facility] [place] [phone] PCP - General Internal Medicine 09/19/24 documented as of this encounter
== END 2025-01-31 10:42 | disposition home or self-care (01) ==
LOC: HO.MRI 10:41
PROVIDERS: Visit Provider Psychiatry & Neurology Neurology
DX: G20.A2 Parkinson's disease without dyskinesia, with fluctuations (principal)
CPT/HCPCS: 70551

== ENCOUNTER → 2025-01-31 10:49 | Outpatient (BNV) | payer MEDICARE, MEDICAID, SELFPAY | PROVIDERS: Visit Provider Radiology Diagnostic Radiology | DX: G20.A2 Parkinson's disease without dyskinesia, with fluctuations (principal) | CPT/HCPCS: 70551 ==